=== PATIENT | female | born 1995 | race Hispanic/Latino ===

== ENCOUNTER 2024-04-04 18:50 | Emergency (ER) | payer SELFPAY ==
[~2024-04-04] VITALS: Ht 165.1 cm; Wt 63.5 kg
[2024-04-04] MEDS: LORazepam 2 MG/ML 1 ML VIAL IM ONE (19:15)
[2024-04-04] MEDS: HALOPERIDOL INJ 5 MG/ML VIAL IM ONE (19:15)
[2024-04-04] MEDS: DiphenhydrAMINE HCL 50 MG/ML VIAL IM ONE (19:15)
[2024-04-04 20:24] LABS: AMPHET/METH SCREEN,URINE POSITIVE (NEGATIVE); BARBITURATE SCREEN, URINE NEGATIVE (NEGATIVE); BENZODIAZEPINES SCREEN,URINE NEGATIVE (NEGATIVE); CANNABINOID SCREEN,URINE POSITIVE (NEGATIVE); COCAINE SCREEN,URINE POSITIVE (NEGATIVE); OPIATE SCREEN,URINE NEGATIVE (NEGATIVE); PHENCYCLIDINE SCREEN,URINE NEGATIVE (NEGATIVE)
[2024-04-04] MEDS: PoTASSium BIcarbonate/CIT AC 25 MEQ TABLET.EFF PO ONE (20:35)
[2024-04-05 00:04] VITALS: BP 128/78; PULSE 85; RESP 18; TEMP 98.2; O2SAT 98
== END 2024-04-05 00:39 | disposition home or self-care (01) ==
LOC: EDH 18:50
DX: F19.10 Other psychoactive substance abuse, uncomplicated (principal); E11.9 Type 2 diabetes mellitus without complications; E87.6 Hypokalemia; F17.200 Nicotine dependence, unspecified, uncomplicated; H54.7 Unspecified visual loss
CPT/HCPCS: 99284; 80305; 96372 ×3; J1200; J1630; J2060